=== PATIENT | male | born 1935 | race Caucasian/White ===

== ENCOUNTER 2018-02-04 19:05 | Emergency (ER) | payer OTHER ==
[2018-02-04 19:08] VITALS: TEMP 36.8; Ht 177.8 cm
[2018-02-04] MEDS ORDERED: WARF-285 PO ×2 (19:28)
[2018-02-04] MEDS ORDERED: TAMS0.4C38 PO (19:35)
[2018-02-04] MEDS ORDERED: LISI-725 PO (19:35)
[2018-02-04] MEDS ORDERED: VNTHFA/IN INH (19:35)
[2018-02-04] MEDS ORDERED: GLIM1TAB2 PO (19:35)
[2018-02-04] MEDS ORDERED: TORS20TA2 PO (19:35)
[2018-02-04] MEDS ORDERED: CLOP1TAB15 PO (19:35)
[2018-02-04] MEDS ORDERED: HYDR-5688 PO (19:35)
[2018-02-04] MEDS ORDERED: POTA1CAP53 PO (19:35)
[2018-02-04] MEDS ORDERED: ALLO100T PO (19:35)
[2018-02-04] MEDS ORDERED: ATOR-24 PO (19:35)
[2018-02-04] MEDS ORDERED: METO-478 PO (19:35)
[2018-02-04] MEDS ORDERED: FINA5TAB PO (19:36)
[2018-02-04 19:45] LABS: BASO % 0.3 %; BASO ABS # 0.02 K/uL (0-0.2); EOS % 1.9 %; EOS ABS # 0.14 K/uL (0-0.5); HEMATOCRIT 47.1 % (42-52); HEMOGLOBIN 15.8 g/dL (14.0-18.0); IG# 0.03 K/uL (0.00-0.02); LYMPH % 17.1 %; LYMPH ABS # 1.26 K/uL (1.2-3.4); MEAN CELL VOLUME 92.4 fL (80-100); MEAN CORPUSCULAR HGB CONC 33.5 g/dl (32-36); MEAN PLATELET VOLUME 10.4 fL (7.4-10.4); MONO % 12.1 %; MONO ABS # 0.89 K/uL (0.11-0.59); NEUT % 68.2 %; NEUT ABS # 5.04 K/uL (1.4-6.5); PLATELET COUNT 158 K/uL (130-400); RED CELL DISTRIBUTION WIDTH CV 14.7 % (11.5-14.5); WHITE BLOOD COUNT 7.38 K/uL (4.8-10.8)
[2018-02-04 19:55] LABS: INR 1.9 (0.9-1.1)
[2018-02-04 20:04] LABS: BLOOD UREA NITROGEN 36 mg/dl (7-18); CALCIUM 8.3 mg/dl (8.5-10.1); CARBON DIOXIDE 28 mmol/L (21-32); CREATININE 1.52 mg/dl (0.60-1.40); GLUCOSE 130 mg/dl (70-99); POTASSIUM 4.3 mmol/L (3.5-5.1); SODIUM 139 mmol/L (136-145)
[2018-02-04] MEDS ORDERED: CIPROFLOXACIN 500 MG TAB PO STA (20:28)
[2018-02-04 21:27] VITALS: BP 153/80; PULSE 71; O2SAT 94
--- NOTE | 2018-02-04 22:51 | EMERGENCY ROOM VISIT NOTE ---
History Report prepared by Pao: Ansley Jang Under the Supervision of: Dr. Vince Pierce D.O. First contact with patient: 19:10 Chief Complaint: CATHETER REPLACEMENT Stated Complaint: URINATING AROUND CATH TUBE History of Present Illness The patient is a 83 year old male who presents to the Emergency Room with complaints of a catheter problem beginning yesterday. He is accompanied by his who notes her had a catheter placed on Monday at [facility] as her had been having difficulty urinating. She notes they were told to follow up with urology and they would remove the catheter in a week however yesterday, his catheter clogged up and they replaced it. After the replacement, the patient could not urinate and describes his feeling as burning. His also states that today around 0600, her began bleeding and leaking from the tube which is why they came to the ED. Pt denies headache, change in vision , fevers, chest pain, shortness of breath, abdominal pain, nausea, vomiting, diarrhea, and melena. He is on Coumadin and Plavix. His last INR was last Monday and it was around 2.1. Source of History: patient, spouse/significant other () Onset: yesterday Position: other (catheter) Quality: burning Timing: other (after catheter replacement) Associated Symptoms: No headache, No chest pain, No SOB, No vomiting, No abdominal pain, No melena, No diarrhea Note: Negative change in vision Review of Systems See HPI for pertinent positives & negatives. A total of 10 systems reviewed and were otherwise negative. Past Medical & Surgical Medical Problems: (1) No significant past medical history Family History No pertinent family history Social History Marital Status: Housing Status: lives with significant other Occupation Status: retired Current/Historical Medications Scheduled Allopurinol (Zyloprim), 100 MG PO DAILY Atorvastatin (Lipitor), 40 MG PO QPM Clopidogrel (Plavix), 75 MG PO DAILY Finasteride (Proscar), 5 MG PO DAILY Glimepiride (Glimepiride), 1 TAB PO DAILY Lisinopril (Zestril), 20 MG PO DAILY Metoprolol Succinate (Toprol Xl), 25 MG PO QPM Potassium Chloride (Klor-Con Sprinkle), 10 MEQ PO BID Tamsulosin Hcl (Flomax), 0.4 MG PO BID Torsemide (Demadex), 20 MG PO DAILY Warfarin Sodium (Warfarin Sodium), 6 TAB PO 2XWK Warfarin Sodium (Warfarin Sodium), 3 TAB PO 5XWK Scheduled PRN Albuterol Hfa (Ventolin Hfa), 2-4 PUFFS INH Q6H PRN for SOB/Wheezing Hydrocodone/Acetaminophen 5MG/325MG ([place] 5MG/325MG), 1 TABLET PO UD PRN for Pain Allergies Coded Allergies: Aspirin (Verified Allergy, Unknown, HIVES, SOB, 02/04/18) Physical Exam Vital Signs Date Time Temp Pulse Resp B/P (MAP) Pulse Ox O2 Delivery O2 Flow Rate FiO2 02/04/18 21:27 71 20 153/80 94 Room Air 02/04/18 19:08 36.8 65 20 152/76 92 Room Air Physical Exam GENERAL: Sitting up in bed, disheveled, well appearing, no distress, non-toxic EYE EXAM: normal conjunctiva. PERRL and EOM's grossly intact. OROPHARYNX: no exudate, no erythema, lips, buccal mucosa, and tongue normal and mucous membranes are moist NECK: supple, no nuchal rigidity, no adenopathy, non-tender LUNGS: Clear to auscultation. Normal chest wall mechanics HEART: Systolic ejection murmur, S1 normal and S2 normal ABDOMEN: abdomen soft, non-tender, normo-active bowel sounds, no masses, no rebound or guarding. : Normal external circumcised genitalia. Valdez in placed which appears to be draining. SKIN: no rashes and no bruising UPPER EXTREMITIES: upper extremities are grossly normal. LOWER EXTREMITIES: No pitting edema. NEURO EXAM: Normal sensorium, cranial nerves II-XII grossly intact, normal speech, no gross weakness of arms, no gross weakness of legs. Bedside ultra sound shows distended bladder with Valdez in place Medical Decision & Procedures Laboratory Results 02/04/18 19:31 Red Blood Count 5.10, Mean Corpuscular Volume 92.4, Mean Corpuscular Hemoglobin 31.0, Mean Corpuscular Hemoglobin Concent 33.5, Mean Platelet Volume 10.4, Neutrophils (%) (Auto) 68.2, Lymphocytes (%) (Auto) 17.1, Monocytes (%) (Auto) 12.1, Eosinophils (%) (Auto) 1.9, Basophils (%) (Auto) 0.3, Neutrophils # (Auto ) 5.04, Lymphocytes # (Auto) 1.26, Monocytes # (Auto) 0.89, Eosinophils # (Auto ) 0.14, Basophils # (Auto) 0.02 02/04/18 19:31 Test 02/04/18 19:31 White Blood Count 7.38 K/uL (4.8-10.8) Red Blood Count 5.10 M/uL (4.7-6.1) Hemoglobin 15.8 g/dL (14.0-18.0) Hematocrit 47.1 % (42-52) Mean Corpuscular Volume 92.4 fL (80-100) Mean Corpuscular Hemoglobin 31.0 pg (25-34) Mean Corpuscular Hemoglobin Concent 33.5 g/dl (32-36) Platelet Count 158 K/uL (130-400) Mean Platelet Volume 10.4 fL (7.4-10.4) Neutrophils (%) (Auto) 68.2 % Lymphocytes (%) (Auto) 17.1 % Monocytes (%) (Auto) 12.1 % Eosinophils (%) (Auto) 1.9 % Basophils (%) (Auto) 0.3 % Neutrophils # (Auto) 5.04 K/uL (1.4-6.5) Lymphocytes # (Auto) 1.26 K/uL (1.2-3.4) Monocytes # (Auto) 0.89 K/uL (0.11-0.59) Eosinophils # (Auto) 0.14 K/uL (0-0.5) Basophils # (Auto) 0.02 K/uL (0-0.2) RDW Standard Deviation 50.0 fL (36.4-46.3) RDW Coefficient of Variation 14.7 % (11.5-14.5) Immature Granulocyte % (Auto) 0.4 % Immature Granulocyte # (Auto) 0.03 K/uL (0.00-0.02) Prothrombin Time 20.1 SECONDS (9.0-12.0) Prothromb Time International Ratio 1.9 (0.9-1.1) Anion Gap 6.0 mmol/L (3-11) Estimated GFR () 48.8 Estimated GFR (Non- 42.1 BUN/Creatinine Ratio 23.6 (10-20) Calcium Level 8.3 mg/dl (8.5-10.1) Laboratory results per my review. Medications Administered Medications (Trade) Dose Ordered Sig/Buck Route Start Time Stop Time Status Last Admin Dose Admin Ciprofloxacin (Cipro Tab) 500 mg NOW STAT PO 02/04/18 20:28 02/04/18 20:29 DC 02/04/18 21:27 500 MG ED Course ED COURSE: Vital signs were reviewed and showed normotensive The patients medical record was reviewed The above diagnostic studies were performed and reviewed. ED treatments and interventions as stated above. 1911: The patient was evaluated in room A10. A complete history and physical examination was performed. 1949: Repeat bladder scan shows bladder completely collapsed. Valdez in place. 2024: Upon reevaluation, the patient is feeling better. I discussed my findings with the patient and he understands and agrees with the treatment plan. Based on the patients age, coexisting illnesses, exam and lab findings the decision to treat as an outpatient was made. The patient remained stable while under my care. The patient appeared well at the time of discharge. Medical Decision Differential diagnoses includes but is not limited to gastritis, peptic ulcer disease, GERD, gallbladder disease, pancreatitis, small bowel obstruction, acute coronary syndrome, pericarditis, ischemic bowel, irritable bowel disease, irritable bowel syndrome, appendicitis, diverticulitis, malignancy, hernia, urinary tract infection, torsion, [/ectopic (if female)], perforation, trauma, infectious. Patient is an 83-year-old male with a past medical history of stage III kidney disease per family that presents the ER for urinary retention. He notes that he has having overflow around the catheter in his penis. He has no complaints at this time. CBC was unremarkable. BMP with a creatinine 1.5. I do believe that this likely consistent with his baseline as he has stage III disease per . INR was slightly low at 1.9. Family was updated. Bedside ultrasound confirmed Valdez in proper position urinary bladder was distended. We did flush the catheter and there is fair amount of clot that came out. The urine turned clear. Patient was given a one-time dose of Cipro secondary to flushing the catheter. Patient will follow up with his urologist tomorrow. Discussed with Pt concerning signs and symptoms to watch out for. Pt was instructed to follow up with their PCP and discussed with the patient their option to return to the ED at anytime for persistent or worsening symptoms. The appropriate anticipatory guidance and out-patient management, including indications for return to the emergency department, were explained at length to the patient and understood. Medication Reconcilliation Current Medication List: was personally reviewed by me Blood Pressure Screening Patient's blood pressure: Normal blood pressure Blood pressure disposition: Did not require urgent referral Impression Primary Impression: Urinary retention Scribe Attestation The scribe's documentation has been prepared under my direction and personally reviewed by me in its entirety. I confirm that the note above accurately reflects all work, treatment, procedures, and medical decision making performed by me. Departure Information Dispostion Home / Self-Care Referrals No Doctor, Assigned (PCP) Forms HOME CARE DOCUMENTATION FORM, IMPORTANT VISIT INFORMATION Patient Instructions [facility] Additional Instructions Please follow up with your primary care doctor with in the next 24 hours. Any worsening of your symptoms, please return to the ED immediately. This includes any fevers greater than 100.4, worsening pain, chest pain, shortness breath, persistent nausea, vomiting, unable to eat or drink, or any other concerning signs or symptoms from your standpoint. Please make sure that you follow-up with your urologist.
== END 2018-02-04 21:28 | disposition home or self-care (01) ==
LOC: C.EDB 19:09 → C.EDA 21:28
DX: R33.9 Retention of urine, unspecified (principal); R79.89 Other specified abnormal findings of blood chemistry; N18.3 Chronic kidney disease, stage 3 (moderate); Z98.890 Other specified postprocedural states; Z79.01 Long term (current) use of anticoagulants; Z79.899 Other long term (current) drug therapy; Z88.6 Allergy status to analgesic agent

== ENCOUNTER 2019-01-04 13:51 | Inpatient (IN) ==
[2019-01-04] MEDS ORDERED: ONDANSETRON INJ 2 MG/ML 2 ML VIAL IV PRN (17:50)
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
[2019-01-04] MEDS ORDERED: LIDOCAINE 5% 1 PATCH TD SCH (18:15)
[2019-01-04] MEDS: NSS + 20MEQ KCL 20 MEQ/1,000 ML BAG IV SCH (18:49)
[2019-01-04] MEDS ORDERED: PNEUMOCOCCAL ADMINISTRATION CHARGE ONE (19:00)
[2019-01-04] MEDS ORDERED: PNEUMOCOCCAL POLYSACCHARIDES 25 MCG/0.5 ML VIAL/SYR IM ONE (19:00)
[2019-01-04 19:58] LABS: Creatinine Clr Calc Pharmacy 78.6 ml/min; Est GFR (African American) 88.3; Est GFR (Non-African American) 76.2
[2019-01-04] MEDS ORDERED: CIPROFLOXACIN 500 MG TAB PO SCH (21:00)
[2019-01-04] MEDS: METOPROLOL SUCC 25MG EXT REL TAB PO SCH (21:06)
[2019-01-04] MEDS: ATORVASTATIN 40 MG TAB PO SCH (21:06)
[2019-01-04] MEDS: TAMSULOSIN HCL 0.4 MG CAP PO SCH (21:06)
[2019-01-04 21:42] LABS: Appearance Urine Clear (Clear); Bacteria Urine Automated Negative (Negative); Bilirubin Urine Negative (Negative); Blood Urine 3+ (Negative); Color Urine Yellow; Glucose Urine UA Negative (Negative); Ketones Urine Negative (Negative); Leukocyte Esterase Urine Trace (Negative); Nitrite Urine Negative (Negative); Protein Urine 1+ (Negative); RBC Urine Automated >30 /hpf (0-4); Specific Gravity Urine 1.019 (1.000-1.030); Urobilinogen Urine Negative (Negative)
[2019-01-05] MEDS ORDERED: CARBOHYDRATES FOR HYPOGLYCEMIA PO PRN (04:16)
[2019-01-05] MEDS ORDERED: GLUCOSE 40% GEL 15 GM TUBE PO PRN (04:16)
[2019-01-05] MEDS ORDERED: GLUCOSE 10 TABS/TUBE PO PRN (04:16)
[2019-01-05] MEDS ORDERED: DEXTROSE 50% 50 ML SYRINGE IV PRN (04:16)
[2019-01-05] MEDS ORDERED: GLUCAGON FOR INJ 1 MG VIAL SQ PRN (04:16)
[2019-01-05] MEDS ORDERED: Nursing to Pharmacy Communication ONE (04:47)
[2019-01-05 05:47] LABS: Basophils # (auto) 0.02 K/uL (0-0.2); Basophils % (auto) 0.3 %; Eosinophils % (auto) 1.4 %; Hematocrit (blood only) 42.2 % (42-52); Immature Granulocytes % (auto) 1.4 %; Lymphocytes # (auto) 0.81 K/uL (1.2-3.4); Lymphocytes % (auto) 11.1 %; Mean Corpuscular Hgb Conc 33.2 g/dL (32-36); Mean Corpuscular Volume 93.8 fL (80-100); Mean Platelet Volume 9.6 fL (7.4-10.4); Monocytes # (auto) 0.64 K/uL (0.11-0.59); Monocytes % (auto) 8.8 %; Neutrophils # (auto) 5.64 K/uL (1.4-6.5); Platelet Count 217 K/uL (130-400); RDW Coefficient of Variation 14.9 % (11.5-14.5); RDW Standard Deviation 50.2 fL (36.4-46.3); White Blood Count 7.31 K/uL (4.8-10.8)
[2019-01-05 06:13] LABS: INR 1.9 (0.9-1.1); Prothrombin Time 18.5 Seconds (9.0-12.0)
[2019-01-05 06:27] LABS: Albumin Level 2.3 gm/dl (3.4-5.0); BUN Creatinine Ratio 12.7 (10-20); Creatinine Clr Calc Pharmacy 88.1 ml/min; Est GFR (Non-African American) 81.9; Potassium 3.7 mmol/L (3.5-5.1)
[2019-01-05] MEDS: INSULIN ASPART 100 UNITS/ML 3 ML PEN SC SCH ×3 (06:28→18:07)
[2019-01-05 06:30] LABS: Albumin Globulin Ratio 0.7 (0.9-2); Bilirubin,Total 1.4 mg/dl (0.2-1); Globulin 3.2 gm/dl (2.5-4.0); Total Protein 5.5 gm/dl (6.4-8.2)
[2019-01-05] MEDS: NSS + 20MEQ KCL 20 MEQ/1,000 ML BAG IV SCH ×2 (07:27→20:06)
[2019-01-05] MEDS: ACETAMINOPHEN 325 MG TAB PO PRN ×3 (08:03→21:19)
[2019-01-05] MEDS: LISINOPRIL 20 MG TAB PO SCH (08:04)
[2019-01-05] MEDS: FINASTERIDE 5 MG TAB PO SCH (08:04)
[2019-01-05] MEDS: CLOPIDOGREL BISULFATE 75 MG TAB PO SCH (08:05)
[2019-01-05] MEDS: TORSEMIDE 10 MG TAB PO SCH (08:05)
[2019-01-05] MEDS: TAMSULOSIN HCL 0.4 MG CAP PO SCH ×2 (08:05→20:50)
--- NOTE | 2019-01-05 08:18 | XRay Report ---
KUB HISTORY: Ileus from outside hospital COMPARISON: Abdominal series outside hospital 01/04/2019. FINDINGS: Interval improvement in the distended gas-filled loops of large and small bowel. This favor s a resolving ileus. The cecum measures 12 cm in diameter, previously measuring 17 cm. No renal calc maty. No ureteral calculi. No pneumoperitoneum or pneumatosis. An aortobiiliac stent graft is noted. P rior cholecystectomy. The lung bases are clear. IMPRESSION: Interval improvement in the distended gas-filled loops of large and small bowel. This favors a resolv ing ileus. Electronically signed by: Lazarus Marshall M.D. 01/05/2019 8:17 AM
--- NOTE | 2019-01-05 08:21 | Gastrointestinal Consultation ---
Date of Consultation January 05, 2019 Assessment & Plan (1) Ileus: Certainly has physical exam findings as well as outside radiology's that suggest ileus, or concerning whether this represents a distal colonic obstruction and/or a Maxine's type syndrome. Certainly if his colon is distended as discussed on outside radiology records, a distention greater than 12 cm or greater than 6 days exhibits a very high rate of spontaneous perforation (in the setting of Maxine's). If this represents an ileus with both small and large bowel distention, then conservative management with NG tube rectal tube avoidance of narcotics correction of electrolytes and treatment of any metabolic issues would be in order. Will obtain abdominal x-ray and make further recommendations. In the interim -Please hold his Coumadin -Consider correcting his INR to 1.5 or less for potential intervention -Hold Plavix(given this morning) -Further recommendation once image review. History of Present Illness Attending Physician: Zoe Davis MD History of Present Illness I was asked to consult on Mr. Ortega this morning after and accepted transfer from the hospitalist service for GI care, without discussed with GI team, for ileus possible colonic pseudoobstruction. Approximately on December 27 Mr. Harry had a traumatic fall, presented to the ER [facility] with back pain and was found to have a compression fracture of his lumbar vertebrae. He was admitted to the hospital for pain control that was given in the way of IV morphine as well as fentanyl patch. He was transfe rred to a senior care and and patient complained about abdominal distention even prior to discharge. He was readmitted back to [facility] after a short stay at the senior care and had abdominal imaging to suggest an ileus, possible small as well as large bowel distention, but certainly cecal and ascending transverse distention. He was treated conservatively with enemas, as well as possibly some oral laxatives. This did not resolve therefore they transferred him for further opinion and care. He arrived last evening at our facility, he did have one reported bowel movement per is at bedside, 3 reported bowel movements per nursing staff, but still complains of mild abdominal distention without belly pain nausea and/or vomiting. He has been afebrile. He was supratherapeutic on his INR yesterday INR today is 1.9, he is on Plavix and received a dose this morning. No abdominal imaging is available from our facility for review. Is lying in bed somewhat comfortable, on oxygen, has memory issues so the majority of the history is obtained from his . He did pass gas per his last night and did have a bowel movement. Allergies Allergy/AdvReac Type Severity Reaction Status Date / Time aspirin Allergy Unknown HIVES, Verified 01/04/19 17:32 SOB, tongue swells, lips & hands swell Home Medications Home Medications Medication Instructions Recorded Confirmed Type ALBUTEROL HFA (VENTOLIN HFA) 2 puff INHALATION Q6H PRN #1 02/04/18 History inhaler ALLOPURINOL (ZYLOPRIM) 100 mg PO DAILY #0 tab 02/04/18 History ATORVASTATIN (LIPITOR) 40 mg PO QPM #0 tab 02/04/18 History Clopidogrel (Plavix) 75 mg PO DAILY #0 tab 02/04/18 History Finasteride (Proscar) 5 mg PO DAILY #0 tab 02/04/18 History GLIMEPIRIDE 1 tab PO DAILY 90 Days #90 tab 02/04/18 History Lisinopril (Zestril) 20 mg PO DAILY #0 tab 02/04/18 History METOPROLOL SUCCINATE (TOPROL XL) 25 mg PO QPM #30 tab 02/04/18 History Potassium Chloride (Klor-Con 10 meq PO BID #0 02/04/18 History Sprinkle) TAMSULOSIN HCL (FLOMAX) 0.4 mg PO BID #0 cap 02/04/18 History TORSEMIDE (DEMADEX) 20 mg PO DAILY #0 tab 02/04/18 History WARFARIN SODIUM 3 tab PO 5XWK 90 Days #0 tab 02/04/18 History WARFARIN SODIUM 6 tab PO 2XWK 90 Days #0 tab 02/04/18 History acetaminophen [Tylenol 8 Hour] 1,300 mg PO DAILY 01/04/19 01/04/19 History bisacodyl [Biscolax] 10 mg [place] PRN 01/04/19 History ciprofloxacin HCl [Cipro] 500 mg PO Q12H 01/04/19 01/04/19 History melatonin 3 mg PO HS PRN 01/04/19 01/04/19 History polyethylene glycol 3350 [Miralax] 8.5 g PO DAILY 01/04/19 01/04/19 History sodium phosphates [Fleet Enema] 1 [place] ONCE PRN 01/04/19 History Patient History Medical History Cholecystectomy planned Surgical History H/O carotid endarterectomy H/O endovascular stent graft for abdominal aortic aneurysm Family History Brother Cancer Social History Preferred Language: Mohawk Communication Ability: Effective 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: No Beliefs That Will Affect Care: None Current Living Situation: [facility] Other Information That Helps Us Care for You: No Feels Safe at Home: Yes Safety Concerns: Feels Safe At This Time Smoking Status: Former smoker Tobacco Type: cigarettes Cigarettes Per Day: 20- 30 Do You Dip or Chew Tobacco: No Smoking End Date: 2007 Second Hand Exposure: No Tobacco Cessation Education Requested by Patient: No Hx Alcohol Use: Yes Alcohol type: beer Hx Substance Use: No Review of Systems Review of Systems: Unobtainable due to mental health condition Physical Exam Physical Exam: Obese, lying in bed, nasal cannula on, no apparent distress Heart is irregular Lungs are coarse sounding the bases to diminished Abdomen has hypoactive but present bowel sounds soft, but distended, increased tympany throughout the abdomen 1+ peripheral edema Cranial nerves II through XII are intact Alert to himself not to time or place. Results & Data Vital Signs (Past 12 Hours) Vital Signs Temp Pulse Resp BP Pulse Ox 01/05/19 07:32 36.6 C 82 20 163/81 H 94 01/04/19 23:09 36.7 C 75 19 117/76 97 01/04/19 21:04 72 116/72
--- NOTE | 2019-01-05 09:09 | Family Medicine Progress Note ---
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 and risk of perforation Will likely decompress with NG and Rectal tube KUB ordered Does not appear to be fully obstructed as patient continues to pass gas and had bowel movement last night Will avoid opiates for pain management and use tylenol and lidocaine patch on fractured L3 NPO with IV fluid maintenance CHF No recent echo on file Will avoid overaggressive IV fluid due to patient's history of CHF Continuing home lisinopril Hold Torsemide while NPO and on IVF Atrial Fibrillation Anticoagulated on warfarin INR to 1.9 today will continue to hold warfarin in case of intervention per GI recommendations Recheck INR's daily Continue metoprolol succinate 25 mg qhs COPD Chronic Patient on 3 L currently Does not appear to be in acute exacerbation though slight wheeze heard PRN duonebs for any wheezing/SOB Patient has home oxygen but per does not use it at all DMII Patient on insulin sliding scale with no basal On oral medications at home which are being held Follow BSG BPH Valdez catheter in place currently. Finesteride and tamsulosin. Anticoagulation (For Afib and PVD) Holding clopidogrel for now due to possible surgical intervention Holding coumadin to get INR below 1.5 per GI recommendations F/E/N: NPO on Normal saline with 20 meq KCl at 80 ml/hour DVT PPx: Mechanical Dispo: Med Surg (2) Atrial fibrillation: (3) CHF (congestive heart failure): (4) H/O: CVA (cerebrovascular accident): (5) Iliac aneurysm: (6) COPD (chronic obstructive pulmonary disease): (7) Hypertension: (8) BPH (benign prostatic hyperplasia): (9) Diabetes mellitus: (10) Hyperlipidemia: Supervising Physician Co-Signing Physician Notes Resident Physician Supervision Note: I independently interviewed and examined the patient and verified the lopez history and physical, reviewed labs and image studies, discussed the case with the resident Dr. Mclean and agree with the findings and care plan. Subjective Aakash Ortega lying in bed this morning appearing more alert than yesterday. Still confused but more clear than yesterday. Tells me he has not been having abdominal pain, or back pain or any bowel motions. But his tells me he was complaining of back pain earlier and that he did in fact have a watery bowel motion last night and has been passing flatus all night. Review of Systems Review of Systems: All systems reviewed & are unremarkable except as noted in HPI & below Physical Exam Constitutional: + obese and cooperative; no acute distress Eyes: PERRL, conjunctivae normal, anicteric sclerae Respiratory: normal respiratory effort; no respiratory distress Auscultation: + rhonchi Good air entry globally, some rhoncorous breathing. Patient on nasal cannula at 3 L Cardiovascular: Rate/Rhythm: regular rate and regular rhythm Heart Sounds: normal S1 and normal S2; no click, no gallop, no murmur and no cardiac rub Gastrointestinal (Abdomen): Inspection/Auscultation: + abdomen distended and normal bowel sounds (tinkling bowel sounds); + abdomen abnormal to inspection Percussion/Palpation: + abdomen firm; abdomen nontender and no ascites Results & Data Vital Signs (Past 12 Hours) Vital Signs Temp Pulse Resp BP Pulse Ox 01/05/19 07:32 36.6 C 82 20 163/81 H 94 01/04/19 23:09 36.7 C 75 19 117/76 97 PG Care Time/CCT Total # of Minutes Spent Total Time Spent with Patient: Total time spent is greater than 50% in coordination of care (as documented) at patient's floor/unit and/or counseling patient: Resident Activity Tracking Resident Involvement: Resident Care Provided Care Provided: Adult Hospital Medicine
[2019-01-05] MEDS: METHYLNALTREXONE BROMIDE 12 MG/0.6 ML VIAL SQ SCH (11:57)
--- NOTE | 2019-01-05 15:20 | XRay Report ---
KUB HISTORY: Ileus COMPARISON: KUB 01/05/2019. FINDINGS: Multiple dilated gas-filled loops of large and small bowel are again noted. These have slig htly improved. The cecum is distended up to 10 cm, previously measuring 12 cm. An aortobiiliac stent graft is again noted. Prior cholecystectomy. No pneumoperitoneum or pneumatosis. IMPRESSION: Slight improvement in the suspected ileus as described above. Electronically signed by: Lazarus Marshall M.D. 01/05/2019 3:18 PM
[2019-01-05] MEDS: LIDOCAINE 5% 1 PATCH TD SCH (20:48)
[2019-01-05] MEDS: ATORVASTATIN 40 MG TAB PO SCH (20:49)
[2019-01-05] MEDS: METOPROLOL SUCC 25MG EXT REL TAB PO SCH (20:49)
[2019-01-06] MEDS: INSULIN ASPART 100 UNITS/ML 3 ML PEN SC SCH ×5 (00:21→20:35)
[2019-01-06] MEDS: ACETAMINOPHEN 325 MG TAB PO PRN ×4 (02:52→19:25)
--- NOTE | 2019-01-06 03:30 | Gastroenterology Progress Note ---
Date of Service January 06, 2019 Assessment & Plan (1) Ileus: Narcotic induced ileus of both the large and small bowel. On x-ray yesterday afternoon his cecum diameter was down to 10 cm, also showed small bowel dilation. That is not consistent with Maxine's which is an isolated colonic distention only. Given his improvement as well as presence of small bowel dilation, as well as family wishes, no role for endoscopy. He does have normal active sounds now which is a dramatic improvement. Will await x-ray for this morning, continue checking his electrolytes as well as magnesium that I have ordered today, goal would be a potassium of 4 and a magnesium of 2 If x-ray looks favorable and he continues to do well I would consider small liquid diet and 1 or 2 doses of MiraLAX today. He is due for Relistor again tomorrow pending his clinical course and if has presence of continued ileus. Overall dramatically improved. Subjective 1 large bowel movement yesterday that was unprovoked, and one with an enema. He did receive Relistor yesterday. He is without complaint this morning and resting peacefully. Physical Exam Physical Exam: Arousable Heart is regular Crackles in his bases Normal active bowel sounds today which is different than yesterday which time he had hypoactive to absent bowel sounds, much softer nondistended, 1+ edema Neurologically intact Results & Data Vital Signs (Past 12 Hours) Vital Signs Temp Pulse Resp BP Pulse Ox 01/06/19 00:53 36.5 C 92 H 20 165/96 H 96 01/05/19 20:46 91 H 161/93 H 2 L
[2019-01-06 05:54] LABS: Basophils # (auto) 0.03 K/uL (0-0.2); Basophils % (auto) 0.4 %; Eosinophils # (auto) 0.15 K/uL (0-0.5); Hematocrit (blood only) 42.5 % (42-52); Hemoglobin 14.1 g/dL (14.0-18.0); Immature Granulocytes # (auto) 0.07 K/uL (0.00-0.02); Lymphocytes # (auto) 0.91 K/uL (1.2-3.4); Lymphocytes % (auto) 12.4 %; Mean Corpuscular Hgb Conc 33.2 g/dL (32-36); Mean Corpuscular Volume 94.9 fL (80-100); Mean Platelet Volume 9.3 fL (7.4-10.4); Monocytes # (auto) 0.54 K/uL (0.11-0.59); Monocytes % (auto) 7.4 %; Neutrophils # (auto) 5.62 K/uL (1.4-6.5); Neutrophils % (auto) 76.8 %; Platelet Count 211 K/uL (130-400); RDW Coefficient of Variation 14.7 % (11.5-14.5); RDW Standard Deviation 50.9 fL (36.4-46.3); Red Blood Count 4.48 M/uL (4.7-6.1); White Blood Count 7.32 K/uL (4.8-10.8)
[2019-01-06 06:06] LABS: INR 1.7 (0.9-1.1); Prothrombin Time 16.7 Seconds (9.0-12.0)
[2019-01-06 06:12] LABS: Albumin Level 2.3 gm/dl (3.4-5.0); BUN Creatinine Ratio 17.8 (10-20); Creatinine Clr Calc Pharmacy 96.2 ml/min; Est GFR (African American) 98.5; Magnesium 1.8 mg/dl (1.8-2.4); Potassium 3.9 mmol/L (3.5-5.1)
[2019-01-06 06:15] LABS: Albumin Globulin Ratio 0.7 (0.9-2); Bilirubin,Total 1.4 mg/dl (0.2-1); Globulin 3.3 gm/dl (2.5-4.0); Total Protein 5.6 gm/dl (6.4-8.2)
--- NOTE | 2019-01-06 07:34 | XRay Report ---
KUB HISTORY: Acute left abdominal pain with ileus ileus COMPARISON: KUB 01/05/2019. FINDINGS: Decreased small and large bowel distention with large bowel now measuring up to 5.9 cm transversely, previously 10.4 cm. No pneumatosis or pneumoperitoneum. Aortobiiliac stent graft. Cholecystectomy. Ponce ggested left nephrolithiasis. Degenerative changes of the spine, pelvis and hips. Cardiomegaly with s ubsegmental left basilar opacities. IMPRESSION: Mildly decreased gaseous distention of the large and small bowel compatible with improving ileus. Electronically signed by: Fredi Hinkle M.D. 01/06/2019 7:33 AM
[2019-01-06] MEDS: NSS + 20MEQ KCL 20 MEQ/1,000 ML BAG IV SCH ×2 (08:21→20:37)
[2019-01-06] MEDS: LISINOPRIL 20 MG TAB PO SCH (08:32)
[2019-01-06] MEDS: FINASTERIDE 5 MG TAB PO SCH (08:32)
[2019-01-06] MEDS: TAMSULOSIN HCL 0.4 MG CAP PO SCH ×2 (08:33→20:36)
[2019-01-06] MEDS: CLOPIDOGREL BISULFATE 75 MG TAB PO SCH (08:33)
[2019-01-06] MEDS: POLYETHYLENE (MIRALAX) 17 GM PACK PO SCH (11:28)
--- NOTE | 2019-01-06 14:04 | Family Medicine Progress Note ---
Date of Service January 06, 2019 Assessment & Plan (1) Ileus: Aakash Ortega is an 83 year old man here for fecal impaction and colonic distension Ileus Appears to be improving markedly Abdominal XR showing 4 cm decrease in colon distension GI saw patient early this morning, recommend starting clear liquid diet and trying miralax Patient continuing to pass gas had multiple bowel motions yesterday Will avoid opiates for pain management and use tylenol and lidocaine patch on fractured L3 Chronic CHF No recent echo on file Will avoid overaggressive IV fluid due to patient's history of CHF Continuing home lisinopril Hold Torsemide while NPO and on IVF No symptoms of CHF exacerbation clinically Atrial Fibrillation Holding home warfarin INR to 1.6 today as patient begins to improve, resume coumadin - 1mg today and then 2mgs home dose from tomorrow. Recheck INR's daily Continue metoprolol succinate 25 mg qhs COPD Chronic Patient on 2 L currently Does not appear to be in acute exacerbation though slight wheeze heard PRN duonebs for any wheezing/SOB Patient has home oxygen but per does not use it at all DMII Patient on insulin sliding scale with no basal On oral medications at home which are being held Follow BSG BPH Valdez catheter in place currently. Finesteride and tamsulosin. Anticoagulation (For Afib and PVD) Holding clopidogrel - to resume in am - to be ordered. Resume coumadin since improved - ordered Dispo Extensive discussion with patient's - about joint terminal attack controller goals considering worsening quality of life. To consult palliative care in am for further discussion. F/E/N: Clear liquid. To d/c IVF in am. Continue Normal saline with 20 meq KCl at 80 ml/hour DVT PPx: Mechanical (2) Arthritis: (3) Atrial fibrillation: (4) Dementia: (5) Chronic constipation: (6) CHF (congestive heart failure): (7) H/O: CVA (cerebrovascular accident): (8) Iliac aneurysm: (9) COPD (chronic obstructive pulmonary disease): (10) Hypertension: (11) BPH (benign prostatic hyperplasia): Supervising Physician Co-Signing Physician Notes Resident Physician Supervision Note: I independently interviewed and examined the patient and verified the lopez history and physical, reviewed labs and image studies, discussed the case with the resident Dr. Mclean and agree with the findings and care plan. Subjective Patient is resting in bed more alert. Appears comfortable denies any pain at this time. Talked patient about starting diet today and he was in agreement. Patient reports that he did have bowel motions yesterday and passed gas continuously overnight. Had any nausea or vomiting and bowel motions were very liquid. Review of Systems Constitutional: no fever and no chills Respiratory: no cough and no dyspnea Cardiovascular: no chest pain and no dyspnea Gastrointestinal: + bloating and + diarrhea/loose stools; no abdominal pain Physical Exam Physical Exam: Constitutional: Patient appears well lying in bed no acute distress calm and cooperative : Respiratory patient breathing without any difficulty no accessory muscle use lung sounds vesicular bilaterally Cardiovascular: Heart sounds dual regular rate irregular rhythm consistent with his known atrial fibrillation no murmurs rubs heaves or gallops GI: Abdomen greatly distended though possibly slightly less than yesterday abdomen is soft and nontender normal bowel sounds are present : Valdez catheter in place draining yellow clear urine Results & Data Vital Signs (Past 12 Hours) Vital Signs Temp Pulse Resp BP Pulse Ox 01/06/19 07:47 36.5 C 94 H 18 161/84 H 90 PG Care Time/CCT Total # of Minutes Spent Total Time Spent with Patient: Total time spent is greater than 50% in coordination of care (as documented) at patient's floor/unit and/or counseling patient: Resident Activity Tracking Resident Involvement: Resident Care Provided Care Provided: Adult Hospital Medicine
[2019-01-06] MEDS ORDERED: Nursing to Pharmacy Communication ONE (15:55)
[2019-01-06] MEDS: LIDOCAINE 5% 1 PATCH TD SCH (20:37)
[2019-01-06] MEDS: ATORVASTATIN 40 MG TAB PO SCH (20:38)
[2019-01-06] MEDS: METOPROLOL SUCC 25MG EXT REL TAB PO SCH (20:39)
[2019-01-06] MEDS ORDERED: WARFARIN SOD 1 MG TAB PO STA (21:59)
[2019-01-07] MEDS: ACETAMINOPHEN 325 MG TAB PO PRN ×5 (01:01→23:20)
[2019-01-07 05:57] LABS: Basophils # (auto) 0.03 K/uL (0-0.2); Basophils % (auto) 0.4 %; Eosinophils % (auto) 1.4 %; Hematocrit (blood only) 40.7 % (42-52); Hemoglobin 13.7 g/dL (14.0-18.0); Immature Granulocytes # (auto) 0.08 K/uL (0.00-0.02); Immature Granulocytes % (auto) 1.1 %; Lymphocytes # (auto) 0.95 K/uL (1.2-3.4); Mean Corpuscular Hgb Conc 33.7 g/dL (32-36); Mean Corpuscular Volume 93.6 fL (80-100); Mean Platelet Volume 9.3 fL (7.4-10.4); Monocytes # (auto) 0.44 K/uL (0.11-0.59); Neutrophils # (auto) 5.73 K/uL (1.4-6.5); Neutrophils % (auto) 78.1 %; Platelet Count 224 K/uL (130-400); RDW Coefficient of Variation 14.8 % (11.5-14.5); RDW Standard Deviation 50.9 fL (36.4-46.3); Red Blood Count 4.35 M/uL (4.7-6.1); White Blood Count 7.33 K/uL (4.8-10.8)
[2019-01-07 06:06] LABS: Prothrombin Time 19.5 Seconds (9.0-12.0)
[2019-01-07 06:25] LABS: Albumin Level 2.4 gm/dl (3.4-5.0); BUN Creatinine Ratio 12.1 (10-20); Creatinine Clr Calc Pharmacy 84.1 ml/min; Est GFR (African American) 93.2; Est GFR (Non-African American) 80.4
[2019-01-07 06:28] LABS: Albumin Globulin Ratio 0.8 (0.9-2); Bilirubin,Total 1.2 mg/dl (0.2-1); Globulin 3.2 gm/dl (2.5-4.0); Total Protein 5.6 gm/dl (6.4-8.2)
[2019-01-07] MEDS: NSS + 20MEQ KCL 20 MEQ/1,000 ML BAG IV SCH (08:04)
[2019-01-07] MEDS: FINASTERIDE 5 MG TAB PO SCH (08:05)
[2019-01-07] MEDS: LISINOPRIL 20 MG TAB PO SCH (08:05)
[2019-01-07] MEDS: POLYETHYLENE (MIRALAX) 17 GM PACK PO SCH ×2 (08:05→11:27)
[2019-01-07] MEDS: TAMSULOSIN HCL 0.4 MG CAP PO SCH ×2 (08:05→19:42)
[2019-01-07] MEDS: INSULIN ASPART 100 UNITS/ML 3 ML PEN SC SCH ×4 (08:47→20:16)
--- NOTE | 2019-01-07 10:29 | XRay Report ---
KUB CLINICAL HISTORY: Ileus. FINDINGS: 4 AP, portable, supine abdominal radiographs are compared to study dated 01/06/2019 and corre lated with abdominal CT dated 12/31/2018. An aortobiiliac stent graft is again noted. There is persist ent mild gaseous distention of the colon, similar to previous. There is no evidence of high-grade bow el obstruction. No abnormal abdominal calcifications are identified. Phleboliths are observed in the pelvis. The skeletal structures are osteopenic. Degenerative change is seen in the spine. IMPRESSION: 1. There is no radiographic evidence of high-grade bowel obstruction and there has been no significan t change from yesterday. 2. Mild gaseous distention of the colon is again noted. Electronically signed by: Peter Grimaldo M.D. 01/07/2019 10:28 AM
[2019-01-07] MEDS ORDERED: SOD PHOSPHATE/SOD BIPHOSPHATE ENEMA 132 ML BTL PR STA (11:12)
[2019-01-07] MEDS: METHYLNALTREXONE BROMIDE 12 MG/0.6 ML VIAL SQ SCH (11:27)
--- NOTE | 2019-01-07 11:34 | Family Medicine Progress Note ---
Date of Service January 07, 2019 Assessment & Plan (1) Ileus: Mr. Ortega is an 83 yo M PMH CVA, AAA, aneurysm s/p stent placement (on plavix), afib (on coumadin), T2DM, BPH, CHF, admitted for fecal impaction and colonic distension 2/2 opiate use after mechanical fall. Ileus 2/2 Opiate use -GI on board, appreciate recs. Will continue clear liquids and plan to advance to full liquids 01/08/19 -Miralax 34 daily. Has had copious stool. -XR stable, will monitor daily per GI -Relistor per GI mgmt. -Cont to avoid opiates for pain, see plan for L3 fracture below Fractured L3 -Avoid opiates due to ileus and constipation -Tylenol and lidoderm patch to area -Consider voltaren gel in addition. -Expect pain/discomfort up to 3-4 weeks. CHF, unknown type -No recent echo on file -IVF DCd on 01/07/19 with PO intake -Continue home lisinopril and torsemide -Clinically euvolemic. No s/s of exacerbation. Atrial Fibrillation -Continue warfarin -Daily INR -Metoprolol succinate 25 mg qhs COPD -Stable, on 2L -PRN duonebs for wheezing/SOB -Patient has home oxygen but per does not use it at all. Education provided. T2DM -ISS, no basal -Cont oral meds from home on DC -Monitor BPH -Valdez catheter in place currently. C/W Finesteride and tamsulosin. PVD -Resumed plavix and coumadin F/E/N: Clear liquid diet, DCd IVF DVT PPx: Coumadin Dispo: Med Surg CODE: DNR/DNI (2) Arthritis: (3) Atrial fibrillation: (4) Dementia: (5) Chronic constipation: (6) CHF (congestive heart failure): (7) H/O: CVA (cerebrovascular accident): (8) Iliac aneurysm: (9) COPD (chronic obstructive pulmonary disease): (10) Hypertension: (11) BPH (benign prostatic hyperplasia): Supervising Physician Co-Signing Physician Notes I personally examined the patient and verified all lopez points of history and exam, discussed case, and agree with decision making with Dr Flores. feeling better after BM. stomach less pressure and less distended vitals noted nad breathing unlabored no accessory muscles. abd soft mild distention nontender ileus/narcotics induced - improving back pain - was the cause for needing pain control to begin with - seems tolerable with current regimen DVT proph - anticoagulation Subjective Patient reports he is in moderate discomfort this morning, 7/10 pain. He continues to pass flatus but no BM to date. Overall he states he feels about the same as he did yesterday. Review of Systems Review of Systems: All systems reviewed & are unremarkable except as noted in HPI & below Constitutional: + malaise Gastrointestinal: + abdominal pain, + bloating and + constipation; no early satiety, no nausea and no vomiting Musculoskeletal: + back pain and + joint pain Physical Exam Constitutional: WD/WN, vitals as above + obese, + physical limitations, + frail appearing, + disheveled, cooperative and comfortable Eyes: PERRL, conjunctivae normal, anicteric sclerae ENMT: external ear and nose normal, oropharynx normal Neck: normal visual inspection Respiratory: normal respiratory effort, lungs clear to auscultation Cardiovascular: RRR, no murmur, no edema Gastrointestinal (Abdomen): normal bowel sounds, soft, nontender, no hepatosplenomegaly Inspection/Auscultation: + abdomen distended Percussion/Palpation: abdomen nontender, no guarding and abdomen not rigid Skin: no rashes, warm and dry Neurologic: PERRL, EOMI, accommodation nl, no face palsy, no dysarthria Psychiatric: A+Ox3, euthymic affect Results & Data Vital Signs (Past 12 Hours) Vital Signs Temp Pulse Resp BP Pulse Ox 01/07/19 07:41 36.7 C 64 16 177/70 H 96 01/07/19 00:00 36.7 C 76 20 115/67 97 Laboratory Results 01/07/19 01/07/19 01/07/19 Range/Units 11:47 07:51 05:46 WBC (4.8-10.8) K/uL RBC (4.7-6.1) M/uL Hgb (14.0-18.0) g/dL Hct (42-52) % MCV (80-100) fL MCH (25-34) pg MCHC (32-36) g/dL RDW Std Deviation (36.4-46.3) fL RDW Coeff of Roman (11.5-14.5) % Plt Count (130-400) K/uL MPV (7.4-10.4) fL Immature Gran % (Auto) % Neut % (Auto) % Lymph % (Auto) % [place] % (Auto) % Eos % (Auto) % Baso % (Auto) % Immature Gran # (Auto) (0.00-0.02) K/uL Neut # (Auto) (1.4-6.5) K/uL Lymph # (Auto) (1.2-3.4) K/uL [place] # (Auto) (0.11-0.59) K/uL Eos # (Auto) (0-0.5) K/uL Baso # (Auto) (0-0.2) K/uL PT (9.0-12.0) Seconds INR (0.9-1.1) Sodium 140 (136-145) mmol/L Potassium 4.0 (3.5-5.1) mmol/L Chloride 107 (98-107) mmol/L Carbon Dioxide 29 (21-32) mmol/L Anion Gap 4.0 (3-11) BUN 10 (7-18) mg/dl Creatinine 0.87 (0.6-1.4) mg/dl Est Cr Clr Drug Dosing 84.1 ml/min Est GFR ( Amer) 93.2 Est GFR (Non-Af Amer) 80.4 BUN/Creatinine Ratio 12.1 (10-20) Glucose 107 H (70-99) mg/dl POC Glucose 160 H 111 H (70-99) Calcium 8.0 L (8.5-10.1) mg/dl Total Bilirubin 1.2 H (0.2-1) mg/dl AST 25 (15-37) U/L ALT 31 (12-78) U/L Alkaline Phosphatase 102 (45-117) U/L Total Protein 5.6 L (6.4-8.2) gm/dl Albumin 2.4 L (3.4-5.0) gm/dl Globulin 3.2 (2.5-4.0) gm/dl Albumin/Globulin Ratio 0.8 L (0.9-2) 01/07/19 01/07/19 01/06/19 Range/Units 05:46 05:46 20:14 WBC 7.33 (4.8-10.8) K/uL RBC 4.35 L (4.7-6.1) M/uL Hgb 13.7 L (14.0-18.0) g/dL Hct 40.7 L (42-52) % MCV 93.6 (80-100) fL MCH 31.5 (25-34) pg MCHC 33.7 (32-36) g/dL RDW Std Deviation 50.9 H (36.4-46.3) fL RDW Coeff of Roman 14.8 H (11.5-14.5) % Plt Count 224 (130-400) K/uL MPV 9.3 (7.4-10.4) fL Immature Gran % (Auto) 1.1 % Neut % (Auto) 78.1 % Lymph % (Auto) 13.0 % [place] % (Auto) 6.0 % Eos % (Auto) 1.4 % Baso % (Auto) 0.4 % Immature Gran # (Auto) 0.08 H (0.00-0.02) K/uL Neut # (Auto) 5.73 (1.4-6.5) K/uL Lymph # (Auto) 0.95 L (1.2-3.4) K/uL [place] # (Auto) 0.44 (0.11-0.59) K/uL Eos # (Auto) 0.10 (0-0.5) K/uL Baso # (Auto) 0.03 (0-0.2) K/uL PT 19.5 H (9.0-12.0) Seconds INR 2.0 H (0.9-1.1) Sodium (136-145) mmol/L Potassium (3.5-5.1) mmol/L Chloride (98-107) mmol/L Carbon Dioxide (21-32) mmol/L Anion Gap (3-11) BUN (7-18) mg/dl Creatinine (0.6-1.4) mg/dl Est Cr Clr Drug Dosing ml/min Est GFR ( Amer) Est GFR (Non-Af Amer) BUN/Creatinine Ratio (10-20) Glucose (70-99) mg/dl POC Glucose 175 H (70-99) Calcium (8.5-10.1) mg/dl Total Bilirubin (0.2-1) mg/dl AST (15-37) U/L ALT (12-78) U/L Alkaline Phosphatase (45-117) U/L Total Protein (6.4-8.2) gm/dl Albumin (3.4-5.0) gm/dl Globulin (2.5-4.0) gm/dl Albumin/Globulin Ratio (0.9-2) 01/06/19 Range/Units 16:56 WBC (4.8-10.8) K/uL RBC (4.7-6.1) M/uL Hgb (14.0-18.0) g/dL Hct (42-52) % MCV (80-100) fL MCH (25-34) pg MCHC (32-36) g/dL RDW Std Deviation (36.4-46.3) fL RDW Coeff of Roman (11.5-14.5) % Plt Count (130-400) K/uL MPV (7.4-10.4) fL Immature Gran % (Auto) % Neut % (Auto) % Lymph % (Auto) % [place] % (Auto) % Eos % (Auto) % Baso % (Auto) % Immature Gran # (Auto) (0.00-0.02) K/uL Neut # (Auto) (1.4-6.5) K/uL Lymph # (Auto) (1.2-3.4) K/uL [place] # (Auto) (0.11-0.59) K/uL Eos # (Auto) (0-0.5) K/uL Baso # (Auto) (0-0.2) K/uL PT (9.0-12.0) Seconds INR (0.9-1.1) Sodium (136-145) mmol/L Potassium (3.5-5.1) mmol/L Chloride (98-107) mmol/L Carbon Dioxide (21-32) mmol/L Anion Gap (3-11) BUN (7-18) mg/dl Creatinine (0.6-1.4) mg/dl Est Cr Clr Drug Dosing ml/min Est GFR ( Amer) Est GFR (Non-Af Amer) BUN/Creatinine Ratio (10-20) Glucose (70-99) mg/dl POC Glucose 133 H (70-99) Calcium (8.5-10.1) mg/dl Total Bilirubin (0.2-1) mg/dl AST (15-37) U/L ALT (12-78) U/L Alkaline Phosphatase (45-117) U/L Total Protein (6.4-8.2) gm/dl Albumin (3.4-5.0) gm/dl Globulin (2.5-4.0) gm/dl Albumin/Globulin Ratio (0.9-2) Diagnostic Findings KUB CLINICAL HISTORY: Ileus. FINDINGS: 4 AP, portable, supine abdominal radiographs are compared to study dated 01/06/2019 and correlated with abdominal CT dated 12/31/2018. An aortobiiliac stent graft is again noted. There is persistent mild gaseous distention of the colon, similar to previous. There is no evidence of high-grade bowel obstruction. No abnormal abdominal calcifications are identified. Phleboliths are observed in the pelvis. The skeletal structures are osteopenic. Degenerative change is seen in the spine. IMPRESSION: 1. There is no radiographic evidence of high-grade bowel obstruction and there has been no significant change from yesterday. 2. Mild gaseous distention of the colon is again noted. Electronically signed by: Peter Grimaldo M.D. 01/07/2019 10:28 AM Medications Administered Current Inpatient Medications Acetaminophen (Tylenol) 650 mg PO Q4H PRN PRN Reason: pain/fever Stop: 02/03/19 17:49 Last Admin: 01/07/19 08:44 Dose: 650 mg Documented by: Atorvastatin Calcium (Lipitor) 40 mg PO QPM DYLON Stop: 02/03/19 20:59 Last Admin: 01/06/19 20:38 Dose: 40 mg Documented by: Clopidogrel Bisulfate (Plavix) 75 mg PO DAILY DYLON Stop: 02/04/19 08:59 Last Admin: 01/06/19 08:33 Dose: 75 mg Documented by: Dextrose (Dextrose 50%) 25 - 50 ml IV UD PRN; Protocol PRN Reason: Hypoglycemia Protocol Stop: 02/04/19 04:15 Finasteride (Proscar) 5 mg PO DAILY DYLON Stop: 02/04/19 08:59 Last Admin: 01/07/19 08:05 Dose: 5 mg Documented by: Glucagon (Glucagen) 1 mg SQ UD PRN; Protocol PRN Reason: Hypoglycemia Protocol Stop: 02/04/19 04:15 Glucose (Glucose 40%) 15 - 30 gm PO UD PRN; Protocol PRN Reason: Hypoglycemia Protocol Stop: 02/04/19 04:15 Glucose (Dex4 Glucose) 4 - 8 tabs PO UD PRN; Protocol PRN Reason: Hypoglycemia Protocol Stop: 02/04/19 04:15 Potassium Chloride/Sodium Chloride (Normal Saline W/20 Meq Kcl) 20 meq in 1,000 mls @ 80 mls/hr IV .[id number] DYLON Stop: 02/03/19 18:14 Last Infusion: 01/07/19 09:25 Dose: Infused Documented by: Insulin Aspart (Novolog Flexpen) 0 units SC ACHS DYLON Stop: 02/05/19 16:29 Last Admin: 01/07/19 12:29 Dose: 5 units Documented by: Lidocaine (Lidoderm 5%) 1 patch TD DAILY@2000 [facility] Stop: 02/04/19 19:59 Last Admin: 01/06/19 20:37 Dose: 1 patch Documented by: Lisinopril (Zestril) 20 mg PO DAILY DYLON Stop: 02/04/19 08:59 Last Admin: 01/07/19 08:05 Dose: 20 mg Documented by: Methylnaltrexone [place] (Relistor) 12 mg SQ Q2D@1130 [facility] Stop: 02/04/19 11:29 Last Admin: 01/07/19 11:27 Dose: 12 mg Documented by: Metoprolol Succinate (Toprol Xl) 25 mg PO QPM DYLON Stop: 02/03/19 20:59 Last Admin: 01/06/19 20:39 Dose: 25 mg Documented by: Miscellaneous (Carbohydrates For Hypoglycemia) 15 - 30 gm PO UD PRN PRN Reason: Hypoglycemia Treatment Stop: 02/04/19 04:15 Miscellaneous (Remove Lidoderm Patch) 1 ea N/A DAILY@0800 [facility] Stop: 02/05/19 07:59 Last Admin: 01/07/19 08:06 Dose: 1 ea Documented by: Ondansetron HCl (Zofran) 4 mg IV Q6H PRN PRN Reason: Nausea Stop: 02/03/19 17:49 Polyethylene Glycol (Miralax Powder Packet) 34 gm PO DAILY [facility] Stop: 02/06/19 11:29 Last Admin: 01/07/19 11:27 Dose: 34 gm Documented by: Tamsulosin HCl (Flomax) 0.4 mg PO BID DYLON Stop: 02/03/19 20:59 Last Admin: 01/07/19 08:05 Dose: 0.4 mg Documented by: Torsemide (Demadex) 20 mg PO DAILY DYLON Stop: 02/04/19 08:59 Last Admin: 01/05/19 08:05 Dose: 20 mg Documented by: Warfarin Sodium (Coumadin) 2 mg PO HS DYLON Stop: 02/06/19 20:59 PG Care Time/CCT Total # of Minutes Spent Total Time Spent with Patient: Total time spent is greater than 50% in coordination of care (as documented) at patient's floor/unit and/or counseling patient: Resident Activity Tracking Resident Involvement: Resident Care Provided Care Provided: Adult Hospital Medicine
--- NOTE | 2019-01-07 12:51 | Gastroenterology Progress Note ---
Date of Service January 07, 2019 Assessment & Plan (1) Ileus: Pt is a 83 y/o male seen for narcootic induced ileus. Currently having less colonic distension w/o signs of obstruction on AM KUB. Abd exam benign - Relistor given today - Keep K 4 and above, Mg 2 and above - Continue Miralax 34g daily - Continue CL diet, possible advancing to [place] tomorrow. Supervising Physician Co-Signing Physician Notes Attending attestation I have seen, examined this patient, and agree with the findings and above by our mid-level provider Ms.Leonie Lopez, with the following additions X-rays stable today, patient feels well without complaints. Relistor was given today, Follow x-ray daily Bowel regimen Recall GI if necessary Subjective Pt didn't have BM yesterday, received another dose of Relistor and Miralax today. Denies abd pain, n/v. KUB this AM: 1. There is no radiographic evidence of high-grade bowel obstruction and there has been no significant change from yesterday. 2. Mild gaseous distention of the colon is again noted. Review of Systems Review of Systems: All systems reviewed & are unremarkable except as noted in HPI & below Physical Exam Constitutional: WD/WN, vitals as above well groomed, cooperative and comfortable Eyes: PERRL, conjunctivae normal, anicteric sclerae ENMT: external ear and nose normal, oropharynx normal Respiratory: normal respiratory effort, lungs clear to auscultation Cardiovascular: RRR, no murmur, no edema Gastrointestinal (Abdomen): normal bowel sounds, soft, nontender, no hepatosplenomegaly Skin: no rashes, warm and dry no jaundice Psychiatric: A+Ox3, euthymic affect Lymphatic: no lymphedema Results & Data Vital Signs (Past 12 Hours) Vital Signs Temp Pulse Resp BP Pulse Ox 01/07/19 07:41 36.7 C 64 16 177/70 H 96 Laboratory Results Laboratory Results - last 72 hr 01/04/19 01/04/19 01/04/19 16:46 19:25 21:30 WBC RBC Hgb Hct MCV MCH MCHC RDW Std Deviation RDW Coeff of Roman Plt Count MPV Immature Gran % (Auto) Neut % (Auto) Lymph % (Auto) [place] % (Auto) Eos % (Auto) Baso % (Auto) Immature Gran # (Auto) Neut # (Auto) Lymph # (Auto) [place] # (Auto) Eos # (Auto) Baso # (Auto) PT INR Sodium Potassium Chloride Carbon Dioxide Anion Gap BUN Creatinine 0.93 Est Cr Clr Drug Dosing 78.6 Est GFR ( Amer) 88.3 Est GFR (Non-Af Amer) 76.2 BUN/Creatinine Ratio Glucose POC Glucose 109 H Lactate Calcium Magnesium Total Bilirubin AST ALT Alkaline Phosphatase Total Protein Albumin Globulin Albumin/Globulin Ratio Urine Color Yellow Urine Appearance Clear Urine pH 5.0 Ur Specific [place] 1.019 Urine Protein 1+ H Urine Glucose (UA) Negative Urine Ketones Negative Urine Blood 3+ H Urine Nitrite Negative Urine Bilirubin Negative Urine Urobilinogen Negative Ur Leukocyte Esterase Trace H Urine WBC (Auto) 1-5 Urine RBC (Auto) >30 H U Hyaline Cast (Auto) 10-30 H U Epithel Cells (Auto) 10-20 H Urine Bacteria (Auto) Negative 01/05/19 01/05/19 01/05/19 04:15 05:03 05:03 WBC 7.31 RBC 4.50 L Hgb 14.0 Hct 42.2 MCV 93.8 MCH 31.1 MCHC 33.2 RDW Std Deviation 50.2 H RDW Coeff of Roman 14.9 H Plt Count 217 MPV 9.6 Immature Gran % (Auto) 1.4 Neut % (Auto) 77.0 Lymph % (Auto) 11.1 [place] % (Auto) 8.8 Eos % (Auto) 1.4 Baso % (Auto) 0.3 Immature Gran # (Auto) 0.10 H Neut # (Auto) 5.64 Lymph # (Auto) 0.81 L [place] # (Auto) 0.64 H Eos # (Auto) 0.10 Baso # (Auto) 0.02 PT 18.5 H INR 1.9 H Sodium Potassium Chloride Carbon Dioxide Anion Gap BUN Creatinine Est Cr Clr Drug Dosing Est GFR ( Amer) Est GFR (Non-Af Amer) BUN/Creatinine Ratio Glucose POC Glucose 98 Lactate Calcium Magnesium Total Bilirubin AST ALT Alkaline Phosphatase Total Protein Albumin Globulin Albumin/Globulin Ratio Urine Color Urine Appearance Urine pH Ur Specific [place] Urine Protein Urine Glucose (UA) Urine Ketones Urine Blood Urine Nitrite Urine Bilirubin Urine Urobilinogen Ur Leukocyte Esterase Urine WBC (Auto) Urine RBC (Auto) U Hyaline Cast (Auto) U Epithel Cells (Auto) Urine Bacteria (Auto) 01/05/19 01/05/19 01/05/19 05:03 09:30 12:20 WBC RBC Hgb Hct MCV MCH MCHC RDW Std Deviation RDW Coeff of Roman Plt Count MPV Immature Gran % (Auto) Neut % (Auto) Lymph % (Auto) [place] % (Auto) Eos % (Auto) Baso % (Auto) Immature Gran # (Auto) Neut # (Auto) Lymph # (Auto) [place] # (Auto) Eos # (Auto) Baso # (Auto) PT INR Sodium 139 Potassium 3.7 Chloride 109 H Carbon Dioxide 23 Anion Gap 7.0 BUN 11 Creatinine 0.83 Est Cr Clr Drug Dosing 88.1 Est GFR ( Amer) 95.0 Est GFR (Non-Af Amer) 81.9 BUN/Creatinine Ratio 12.7 Glucose 107 H POC Glucose 108 H Lactate 0.8 Calcium 8.0 L Magnesium Total Bilirubin 1.4 H AST 25 ALT 33 Alkaline Phosphatase 91 Total Protein 5.5 L Albumin 2.3 L Globulin 3.2 Albumin/Globulin Ratio 0.7 L Urine Color Urine Appearance Urine pH Ur Specific [place] Urine Protein Urine Glucose (UA) Urine Ketones Urine Blood Urine Nitrite Urine Bilirubin Urine Urobilinogen Ur Leukocyte Esterase Urine WBC (Auto) Urine RBC (Auto) U Hyaline Cast (Auto) U Epithel Cells (Auto) Urine Bacteria (Auto) 01/05/19 01/05/19 01/06/19 18:05 23:58 05:12 WBC 7.32 RBC 4.48 L Hgb 14.1 Hct 42.5 MCV 94.9 MCH 31.5 MCHC 33.2 RDW Std Deviation 50.9 H RDW Coeff of Roman 14.7 H Plt Count 211 MPV 9.3 Immature Gran % (Auto) 1.0 Neut % (Auto) 76.8 Lymph % (Auto) 12.4 [place] % (Auto) 7.4 Eos % (Auto) 2.0 Baso % (Auto) 0.4 Immature Gran # (Auto) 0.07 H Neut # (Auto) 5.62 Lymph # (Auto) 0.91 L [place] # (Auto) 0.54 Eos # (Auto) 0.15 Baso # (Auto) 0.03 PT INR Sodium Potassium Chloride Carbon Dioxide Anion Gap BUN Creatinine Est Cr Clr Drug Dosing Est GFR ( Amer) Est GFR (Non-Af Amer) BUN/Creatinine Ratio Glucose POC Glucose 92 90 Lactate Calcium Magnesium Total Bilirubin AST ALT Alkaline Phosphatase Total Protein Albumin Globulin Albumin/Globulin Ratio Urine Color Urine Appearance Urine pH Ur Specific [place] Urine Protein Urine Glucose (UA) Urine Ketones Urine Blood Urine Nitrite Urine Bilirubin Urine Urobilinogen Ur Leukocyte Esterase Urine WBC (Auto) Urine RBC (Auto) U Hyaline Cast (Auto) U Epithel Cells (Auto) Urine Bacteria (Auto) 01/06/19 01/06/19 01/06/19 05:12 05:12 05:49 WBC RBC Hgb Hct MCV MCH MCHC RDW Std Deviation RDW Coeff of Roman Plt Count MPV Immature Gran % (Auto) Neut % (Auto) Lymph % (Auto) [place] % (Auto) Eos % (Auto) Baso % (Auto) Immature Gran # (Auto) Neut # (Auto) Lymph # (Auto) [place] # (Auto) Eos # (Auto) Baso # (Auto) PT 16.7 H INR 1.7 H Sodium 140 Potassium 3.9 Chloride 108 H Carbon Dioxide 25 Anion Gap 7.0 BUN 13 Creatinine 0.76 Est Cr Clr Drug Dosing 96.2 Est GFR ( Amer) 98.5 Est GFR (Non-Af Amer) 85.0 BUN/Creatinine Ratio 17.8 Glucose 92 POC Glucose 92 Lactate Calcium 8.0 L Magnesium 1.8 Total Bilirubin 1.4 H AST 25 ALT 32 Alkaline Phosphatase 99 Total Protein 5.6 L Albumin 2.3 L Globulin 3.3 Albumin/Globulin Ratio 0.7 L Urine Color Urine Appearance Urine pH Ur Specific [place] Urine Protein Urine Glucose (UA) Urine Ketones Urine Blood Urine Nitrite Urine Bilirubin Urine Urobilinogen Ur Leukocyte Esterase Urine WBC (Auto) Urine RBC (Auto) U Hyaline Cast (Auto) U Epithel Cells (Auto) Urine Bacteria (Auto) 01/06/19 01/06/19 01/06/19 12:09 16:56 20:14 WBC RBC Hgb Hct MCV MCH MCHC RDW Std Deviation RDW Coeff of Roman Plt Count MPV Immature Gran % (Auto) Neut % (Auto) Lymph % (Auto) [place] % (Auto) Eos % (Auto) Baso % (Auto) Immature Gran # (Auto) Neut # (Auto) Lymph # (Auto) [place] # (Auto) Eos # (Auto) Baso # (Auto) PT INR Sodium Potassium Chloride Carbon Dioxide Anion Gap BUN Creatinine Est Cr Clr Drug Dosing Est GFR ( Amer) Est GFR (Non-Af Amer) BUN/Creatinine Ratio Glucose POC Glucose 86 133 H 175 H Lactate Calcium Magnesium Total Bilirubin AST ALT Alkaline Phosphatase Total Protein Albumin Globulin Albumin/Globulin Ratio Urine Color Urine Appearance Urine pH Ur Specific [place] Urine Protein Urine Glucose (UA) Urine Ketones Urine Blood Urine Nitrite Urine Bilirubin Urine Urobilinogen Ur Leukocyte Esterase Urine WBC (Auto) Urine RBC (Auto) U Hyaline Cast (Auto) U Epithel Cells (Auto) Urine Bacteria (Auto) 01/07/19 01/07/19 01/07/19 05:46 05:46 05:46 WBC 7.33 RBC 4.35 L Hgb 13.7 L Hct 40.7 L MCV 93.6 MCH 31.5 MCHC 33.7 RDW Std Deviation 50.9 H RDW Coeff of Roman 14.8 H Plt Count 224 MPV 9.3 Immature Gran % (Auto) 1.1 Neut % (Auto) 78.1 Lymph % (Auto) 13.0 [place] % (Auto) 6.0 Eos % (Auto) 1.4 Baso % (Auto) 0.4 Immature Gran # (Auto) 0.08 H Neut # (Auto) 5.73 Lymph # (Auto) 0.95 L [place] # (Auto) 0.44 Eos # (Auto) 0.10 Baso # (Auto) 0.03 PT 19.5 H INR 2.0 H Sodium 140 Potassium 4.0 Chloride 107 Carbon Dioxide 29 Anion Gap 4.0 BUN 10 Creatinine 0.87 Est Cr Clr Drug Dosing 84.1 Est GFR ( Amer) 93.2 Est GFR (Non-Af Amer) 80.4 BUN/Creatinine Ratio 12.1 Glucose 107 H POC Glucose Lactate Calcium 8.0 L Magnesium Total Bilirubin 1.2 H AST 25 ALT 31 Alkaline Phosphatase 102 Total Protein 5.6 L Albumin 2.4 L Globulin 3.2 Albumin/Globulin Ratio 0.8 L Urine Color Urine Appearance Urine pH Ur Specific [place] Urine Protein Urine Glucose (UA) Urine Ketones Urine Blood Urine Nitrite Urine Bilirubin Urine Urobilinogen Ur Leukocyte Esterase Urine WBC (Auto) Urine RBC (Auto) U Hyaline Cast (Auto) U Epithel Cells (Auto) Urine Bacteria (Auto) 01/07/19 01/07/19 07:51 11:47 WBC RBC Hgb Hct MCV MCH MCHC RDW Std Deviation RDW Coeff of Roman Plt Count MPV Immature Gran % (Auto) Neut % (Auto) Lymph % (Auto) [place] % (Auto) Eos % (Auto) Baso % (Auto) Immature Gran # (Auto) Neut # (Auto) Lymph # (Auto) [place] # (Auto) Eos # (Auto) Baso # (Auto) PT INR Sodium Potassium Chloride Carbon Dioxide Anion Gap BUN Creatinine Est Cr Clr Drug Dosing Est GFR ( Amer) Est GFR (Non-Af Amer) BUN/Creatinine Ratio Glucose POC Glucose 111 H 160 H Lactate Calcium Magnesium Total Bilirubin AST ALT Alkaline Phosphatase Total Protein Albumin Globulin Albumin/Globulin Ratio Urine Color Urine Appearance Urine pH Ur Specific [place] Urine Protein Urine Glucose (UA) Urine Ketones Urine Blood Urine Nitrite Urine Bilirubin Urine Urobilinogen Ur Leukocyte Esterase Urine WBC (Auto) Urine RBC (Auto) U Hyaline Cast (Auto) U Epithel Cells (Auto) Urine Bacteria (Auto)
--- NOTE | 2019-01-07 14:26 | Palliative Care Consultation ---
Date of Consultation January 07, 2019 Assessment & Plan (1) Palliative care encounter: This is an 83 year old male who was transfered to the [facility] from the [facility] for surgical evaluation as he presented from [facility] for fecal impaction and colonic distention that was diagnosed as an ileus, measuring > 10 cm. Additional PMH includes A-fib, CVA, COPD, DM2, PVD, dementia, CHF. Gastroenterology service did evaluate the patient yesterday and the patients abdominal x-ray has started to show marked improvement, now down to 4cm. Per GI, the recommendation was to start a clear liquid diet and stool motility medications, while avoiding opiates. Palliative Care was consulted to discuss goals of care. -I met with patient and his , Teri in room 403. -Patient was just finishing up his clear liquid diet lunch tray and per patient has been tolerating this well. We discussed his medical condition and the current signs of resolution of the underlying problem. Discussed that the plan is for possibly advancing the diet to full liquids and go from there. -When discussing overall goals with the patient and his , they confirmed him to be a DNR and stated that they have completed a POLST form which is at [facility] indicating DNR, Comfort measures only, trial abx, and no artificial hydration or nutrition. -The patient asked about palliative and hospice at [facility]. She became tearful and I expressed that it appears he IS improving and that his current condition is not anything terminal and that I do not think he is a appropriate for hospice. The patient kept saying that 'Yes, but we fix this and I still have other things wrong', which he does, CHF, COPD and dementia; however, when discussing more about his confusion, the patients thinks that he had a UTI and delirium, not necessarily dementia. -Ultimately, the patient and his have a goal of him returning to [facility] (he was only there one day, prior to going to [facility]), and re- evaluating the possibility of him returning home, which you could sense, was a goal of Teri's but an overwhelming one. -Advised that case management can discuss caregiver options, home mayelin, hospice etc once they could see how he tolerates PT. PT has been ordered. -It is reassuring to see the pt improving and we can assist with any further decision making; however, currently, does not appear to be any acute needs. Confirmed code status DNR. -PPS: 50% -We will follow peripherally. (2) Ileus: (3) Atrial fibrillation: (4) CHF (congestive heart failure): (5) COPD (chronic obstructive pulmonary disease): History of Present Illness Reason for Consultation: goals of care Requesting Physician: Dr. Gill Attending Physician: Vince Gill, DO History of Present Illness This is an 83 year old male who was transfered to the [facility] from the [facility] for surgical evaluation as he presented from [facility] for fecal impaction and colonic distention that was diagnosed as an ileus, measuring > 10 cm. Additional PMH includes A-fib, CVA, COPD, DM2, PVD, dementia, CHF. Gastroenterology service did evaluate the patient yesterday and the patients abdominal x-ray has started to show marked improvement, now down to 4cm. Per GI, the recommendation was to start a clear liquid diet and stool motility medications, while avoiding opiates. Palliative Care was consulted to discuss goals of care. Please see A/P for further details. Thank you for involving the Palliative Care service with this pleasant patient. Allergies Allergy/AdvReac Type Severity Reaction Status Date / Time aspirin Allergy Unknown HIVES, Verified 01/04/19 17:32 SOB, tongue swells, lips & hands swell Home Medications Home Medications Medication Instructions Recorded Confirmed Type acetaminophen [Tylenol Arthritis 1,300 mg PO BID 01/05/19 01/05/19 History Pain] albuterol sulfate [Ventolin HFA] 2 puff INHALATION Q6 PRN 01/05/19 01/05/19 History allopurinol 100 mg PO HS 01/05/19 01/05/19 History atorvastatin 40 mg PO PM 01/05/19 01/05/19 History clopidogrel 75 mg PO QAM 01/05/19 01/05/19 History finasteride 5 mg PO QAM 01/05/19 01/05/19 History glimepiride 1 mg PO QAM 01/05/19 01/05/19 History lisinopril 20 mg PO QAM 01/05/19 01/05/19 History metoprolol succinate 25 mg PO HS 01/05/19 01/05/19 History polyethylene glycol 3350 [Miralax] 8.5 g PO DAILY 01/05/19 01/05/19 History potassium chloride [Klor-Con 10] 10 meq PO BID 01/05/19 01/05/19 History tamsulosin 0.4 mg PO BID 01/05/19 01/05/19 History torsemide 20 mg PO QAM 01/05/19 01/05/19 History warfarin 2 mg PO HS 01/05/19 01/05/19 History Patient History Medical History Cholecystectomy planned Surgical History H/O carotid endarterectomy H/O endovascular stent graft for abdominal aortic aneurysm Family History Brother Cancer Social History Preferred Language: Khmer Communication Ability: Impaired Erp Implementation Consultant Required: No Beliefs That Will Affect Care: None Current Living Situation: Long-Term Other Information That Helps Us Care for You: No Feels Safe at Home: Yes Safety Concerns: Feels Safe At This Time Smoking Status: Former smoker Tobacco Type: cigarettes Cigarettes Per Day: 20- 30 Do You Dip or Chew Tobacco: No Smoking End Date: 2007 Second Hand Exposure: No Tobacco Cessation Education Requested by Patient: No Hx Alcohol Use: Yes Alcohol type: beer Hx Substance Use: No Review of Systems Review of Systems: Pt states that he is feeling better than yesterday Patient was just finishing up his third tray of clear liquids and has been tolerating it so far. Patient reports he continues to pass gas and has had a BM today post enema. Patient states he is hoping to leave the hospital soon. Physical Exam Constitutional: well developed and + ill appearing Eyes: PERRL, conjunctivae normal, anicteric sclerae ENMT: external ear and nose normal, oropharynx normal Neck: trachea midline, no thyromegaly Respiratory: normal respiratory effort and + cough Auscultation: + diminished lung sounds on 2LNC Cardiovascular: Rate/Rhythm: regular rate and regular rhythm Heart Sounds: normal S1 and normal S2 Extremities: normal capillary refill Gastrointestinal (Abdomen): Inspection/Auscultation: abdomen normal to inspection, + abdomen distended and normal bowel sounds Percussion/Palpation: abdomen soft Skin: no rashes, warm and dry Psychiatric: Orientation: alert and oriented x 3 Affect: + flat affect Lymphatic: no cervical or axillary lymphadenopathy Results & Data Vital Signs (Past 12 Hours) Vital Signs Temp Pulse Resp BP Pulse Ox 01/07/19 07:41 36.7 C 64 16 177/70 H 96 PG Care Time/CCT Total # of Minutes Spent Total Time Spent with Patient: Total time spent is greater than 50% in coordination of care (as documented) at patient's floor/unit and/or counseling patient: 50 Time Spent Midlevel Total time spent 50 minutes with > 50% of that time spent assessing the patient, discussing goals of care with patient and his at the bedside.
[2019-01-07] MEDS: LIDOCAINE 5% 1 PATCH TD SCH (19:33)
--- NOTE | 2019-01-07 19:39 | XRay Report ---
KUB CLINICAL HISTORY: Ileus, Bowel distension COMPARISON STUDY: KUB January 07, 2019 at 9:46 AM. FINDINGS: Endovascular bifurcated aortoiliac graft is noted. Bowel distention has improved since exam of January 07, 2019 at 9:46 AM. Residual cholecystectomy clips. A trace left pleural effusion is suspect ed. There are mild bibasilar opacities. Several left renal calculi are again noted. IMPRESSION: 1. Interval improvement in bowel distention. No evidence for a bowel obstruction. 2. Left-sided nephrolithiasis. Electronically signed by: Cristian Swift M.D. 01/07/2019 7:37 PM
[2019-01-07] MEDS: METOPROLOL SUCC 25MG EXT REL TAB PO SCH (19:42)
[2019-01-07] MEDS: ATORVASTATIN 40 MG TAB PO SCH (19:43)
[2019-01-07] MEDS: WARFARIN SOD 2 MG TAB PO SCH (19:43)
[2019-01-08] MEDS: ACETAMINOPHEN 325 MG TAB PO PRN ×4 (04:20→23:38)
[2019-01-08 06:17] LABS: INR 2.9 (0.9-1.1); Prothrombin Time 27.2 Seconds (9.0-12.0)
[2019-01-08 06:19] LABS: BUN Creatinine Ratio 12.2 (10-20); Calcium 8.3 mg/dl (8.5-10.1); Est GFR (African American) 101.3; Est GFR (Non-African American) 87.4; Magnesium 1.8 mg/dl (1.8-2.4); Potassium 3.6 mmol/L (3.5-5.1)
[2019-01-08] MEDS ORDERED: MAGNESIUM SULFATE / D5W 1 GM/100 ML BAG IV ONE (06:52)
[2019-01-08] MEDS ORDERED: POTASSIUM CHLORIDE 20 MEQ/15 ML UDC PO STA (06:52)
[2019-01-08] MEDS: TORSEMIDE 10 MG TAB PO SCH (08:24)
[2019-01-08] MEDS: POLYETHYLENE (MIRALAX) 17 GM PACK PO SCH (08:24)
[2019-01-08] MEDS: TAMSULOSIN HCL 0.4 MG CAP PO SCH ×2 (08:24→20:55)
[2019-01-08] MEDS: FINASTERIDE 5 MG TAB PO SCH (08:25)
[2019-01-08] MEDS: CLOPIDOGREL BISULFATE 75 MG TAB PO SCH (08:25)
[2019-01-08] MEDS: LISINOPRIL 20 MG TAB PO SCH (08:25)
[2019-01-08] MEDS: INSULIN ASPART 100 UNITS/ML 3 ML PEN SC SCH ×4 (08:40→20:56)
--- NOTE | 2019-01-08 09:07 | Family Medicine Progress Note ---
Date of Service January 08, 2019 Assessment & Plan (1) Ileus: Mr. Ortega is an 83 yo M PMH CVA, AAA, aneurysm s/p stent placement (on plavix), afib (on coumadin), T2DM, BPH, CHF, admitted for fecal impaction and colonic distension 2/2 opiate use after mechanical fall. Ileus 2/2 Opiate use, resolved -GI on board, appreciate recs. Advanced diet to full liquids on 01/09 -Miralax 34 daily. Has had copious stool. -XR stable, will monitor daily per GI -Cont to avoid opiates for pain, see plan for L3 fracture below Fractured L3 -Avoid opiates due to ileus and constipation -Tylenol and lidoderm patch to area -Will add voltaren gel while patch off -Expect pain/discomfort up to 3-4 weeks. -Recommend outpatient assessment of bone density (dexa, vit D) considering fracture after mechanical fall -If acute pain still present at 6 weeks post-fall, consider referral for assessment for kyphoplasty -Also consider calcitonin nasal spray depending on bone density, pain level after 6-8 weeks Goals of care discussion -On admission, patient expressed wish for assisted suicide, expressing he could not longer tolerate his clinical status -Patient and adamant that he is not clinically depressed. Consider outpatient eval -Palliative care consulted, appreciated. No life limiting illness at this point. Case management to discuss home health services. Confirmed DNR/I Code status -Patient admits he would like to regain some of his functional status. Discussion was had that this meant he would need to participate in PT/OT while in hospital and while at [facility] CHF, unknown type -No recent echo on file -IVF DCd on 01/07/19 with PO intake -Continue home lisinopril and torsemide -Clinically euvolemic. No s/s of exacerbation. Atrial Fibrillation -Continue warfarin -Daily INR -Metoprolol succinate 25 mg qhs COPD -Stable, on 2L -PRN duonebs for wheezing/SOB -Patient has home oxygen but per does not use it at all. Education prov ided. T2DM -ISS, no basal -Cont oral meds from home on DC -Monitor BPH -Will DC milan catheter 01/08/19. C/W Finesteride and tamsulosin. PVD -Resumed plavix and coumadin F/E/N: Full liquids, converting to heart healthy/carb consistent tonight as tolerated DVT PPx: Coumadin Dispo: Med Surg CODE: DNR/DNI (2) Arthritis: (3) Atrial fibrillation: (4) Dementia: (5) Chronic constipation: (6) CHF (congestive heart failure): (7) H/O: CVA (cerebrovascular accident): (8) Iliac aneurysm: (9) COPD (chronic obstructive pulmonary disease): (10) Hypertension: (11) BPH (benign prostatic hyperplasia): Supervising Physician Co-Signing Physician Notes I personally examined the patient and verified all lopez points of history and exam, discussed case, and agree with decision making with Dr Flores. resting comfortably no new complaints tolerating diet vitals noted nad breathing unlabored no accessory muscles, no pallor or icterus ileus/narcotics induced - improving, advance diet, continue bowel regimen back pain - was the cause for needing pain control to begin with - seems tolerable with current regimen, agree w addition of voltaren gel DVT proph - anticoagulation dispo - hopefully snf w rehab emphasis 1-2 days Subjective Aakash is feeling a little better today in terms of his bloating. Had another large BM overnight. His back discomfort remains at a 7/10. Pt did not want to participate in PT yesterday. Discussed that his goal is to obtain some functional status that he had previously, and therefore this requires participation. Patient amenable. Review of Systems Review of Systems: All systems reviewed & are unremarkable except as noted in HPI & below Constitutional: + body aches and + malaise Respiratory: + dyspnea Cardiovascular: no chest pain and no radiating jaw, neck or arm pain Gastrointestinal: + bloating; no early satiety, no nausea and no vomiting Musculoskeletal: + back pain and + joint pain Physical Exam Constitutional: WD/WN, vitals as above + obese, + physical limitations, + frail appearing, cooperative and comfortable Eyes: PERRL, conjunctivae normal, anicteric sclerae ENMT: external ear and nose normal, oropharynx normal Neck: normal visual inspection Respiratory: normal respiratory effort, lungs clear to auscultation Cardiovascular: RRR, no murmur, no edema Gastrointestinal (Abdomen): normal bowel sounds, soft, nontender, no hepatosplenomegaly Inspection/Auscultation: + abdomen distended Percussion/Palpation: abdomen nontender, no guarding and abdomen not rigid Skin: no rashes, warm and dry Neurologic: PERRL, EOMI, accommodation nl, no face palsy, no dysarthria Psychiatric: A+Ox3, euthymic affect Results & Data Vital Signs (Past 12 Hours) Vital Signs Temp Pulse Resp BP Pulse Ox 01/08/19 06:58 36.4 C L 75 18 152/65 H 97 01/07/19 23:19 36.8 C 82 20 125/68 94 Laboratory Results 01/08/19 01/08/19 01/08/19 Range/Units 07:28 05:09 05:09 PT 27.2 H (9.0-12.0) Seconds INR 2.9 H (0.9-1.1) Sodium 142 (136-145) mmol/L Potassium 3.6 (3.5-5.1) mmol/L Chloride 108 H (98-107) mmol/L Carbon Dioxide 29 (21-32) mmol/L Anion Gap 5.0 (3-11) BUN 9 (7-18) mg/dl Creatinine 0.71 (0.6-1.4) mg/dl Est Cr Clr Drug Dosing 103.0 ml/min Est GFR ( Amer) 101.3 Est GFR (Non-Af Amer) 87.4 BUN/Creatinine Ratio 12.2 (10-20) Glucose 110 H (70-99) mg/dl POC Glucose 105 H (70-99) Calcium 8.3 L (8.5-10.1) mg/dl Magnesium 1.8 (1.8-2.4) mg/dl 01/07/19 01/07/19 01/07/19 Range/Units 20:14 16:29 11:47 PT (9.0-12.0) Seconds INR (0.9-1.1) Sodium (136-145) mmol/L Potassium (3.5-5.1) mmol/L Chloride (98-107) mmol/L Carbon Dioxide (21-32) mmol/L Anion Gap (3-11) BUN (7-18) mg/dl Creatinine (0.6-1.4) mg/dl Est Cr Clr Drug Dosing ml/min Est GFR ( Amer) Est GFR (Non-Af Amer) BUN/Creatinine Ratio (10-20) Glucose (70-99) mg/dl POC Glucose 176 H 91 160 H (70-99) Calcium (8.5-10.1) mg/dl Magnesium (1.8-2.4) mg/dl Medications Administered Current Inpatient Medications Acetaminophen (Tylenol) 650 mg PO Q4H PRN PRN Reason: pain/fever Stop: 02/03/19 17:49 Last Admin: 01/08/19 04:20 Dose: 650 mg Documented by: Atorvastatin Calcium (Lipitor) 40 mg PO QPM DYLON Stop: 02/03/19 20:59 Last Admin: 01/07/19 19:43 Dose: 40 mg Documented by: Clopidogrel Bisulfate (Plavix) 75 mg PO DAILY DYLON Stop: 02/04/19 08:59 Last Admin: 01/08/19 08:25 Dose: 75 mg Documented by: Dextrose (Dextrose 50%) 25 - 50 ml IV UD PRN; Protocol PRN Reason: Hypoglycemia Protocol Stop: 02/04/19 04:15 Diclofenac Sodium (Voltaren 1% Top) 1 appln EXT Q4 DYLON Stop: 02/07/19 11:59 Finasteride (Proscar) 5 mg PO DAILY DYLON Stop: 02/04/19 08:59 Last Admin: 01/08/19 08:25 Dose: 5 mg Documented by: Glucagon (Glucagen) 1 mg SQ UD PRN; Protocol PRN Reason: Hypoglycemia Protocol Stop: 02/04/19 04:15 Glucose (Glucose 40%) 15 - 30 gm PO UD PRN; Protocol PRN Reason: Hypoglycemia Protocol Stop: 02/04/19 04:15 Glucose (Dex4 Glucose) 4 - 8 tabs PO UD PRN; Protocol PRN Reason: Hypoglycemia Protocol Stop: 02/04/19 04:15 Potassium Chloride/Sodium Chloride (Normal Saline W/20 Meq Kcl) 20 meq in 1,000 mls @ 80 mls/hr IV .[id number] DYLON Stop: 02/03/19 18:14 Last Infusion: 01/07/19 09:25 Dose: Infused Documented by: Insulin Aspart (Novolog Flexpen) 0 units SC ACHS DYLON Stop: 02/05/19 16:29 Last Admin: 01/08/19 08:40 Dose: 4 units Documented by: Lidocaine (Lidoderm 5%) 1 patch TD DAILY@1999 [facility] Stop: 02/04/19 19:59 Last Admin: 01/07/19 19:33 Dose: 1 patch Documented by: Lisinopril (Zestril) 20 mg PO DAILY [facility] Stop: 02/04/19 08:59 Last Admin: 01/08/19 08:25 Dose: 20 mg Documented by: Methylnaltrexone [place] (Relistor) 12 mg SQ Q2D@1130 [facility] Stop: 02/04/19 11:29 Last Admin: 01/07/19 11:27 Dose: 12 mg Documented by: Metoprolol Succinate (Toprol Xl) 25 mg PO QPM DYLON Stop: 02/03/19 20:59 Last Admin: 01/07/19 19:42 Dose: 25 mg Documented by: Miscellaneous (Carbohydrates For Hypoglycemia) 15 - 30 gm PO UD PRN PRN Reason: Hypoglycemia Treatment Stop: 02/04/19 04:15 Miscellaneous (Remove Lidoderm Patch) 1 ea N/A DAILY@0800 [facility] Stop: 02/05/19 07:59 Last Admin: 01/08/19 08:43 Dose: 1 ea Documented by: Ondansetron HCl (Zofran) 4 mg IV Q6H PRN PRN Reason: Nausea Stop: 02/03/19 17:49 Polyethylene Glycol (Miralax Powder Packet) 34 gm PO DAILY [facility] Stop: 02/06/19 11:29 Last Admin: 01/08/19 08:24 Dose: 34 gm Documented by: Tamsulosin HCl (Flomax) 0.4 mg PO BID [facility] Stop: 02/03/19 20:59 Last Admin: 01/08/19 08:24 Dose: 0.4 mg Documented by: Torsemide (Demadex) 20 mg PO DAILY [facility] Stop: 02/04/19 08:59 Last Admin: 01/08/19 08:24 Dose: 20 mg Documented by: Warfarin Sodium (Coumadin) 2 mg PO HS [facility] Stop: 02/06/19 20:59 Last Admin: 01/07/19 19:43 Dose: 2 mg Documented by: PG Care Time/CCT Total # of Minutes Spent Total Time Spent with Patient: Total time spent is greater than 50% in learning coordinator rdination of care (as documented) at patient's floor/unit and/or counseling patient: Resident Activity Tracking Resident Involvement: Resident Care Provided Care Provided: Adult Hospital Medicine
[2019-01-08] MEDS: DICLOFENAC SOD 1% GEL 100 GM TUBE EXT SCH ×2 (13:21→15:54)
[2019-01-08] MEDS: LIDOCAINE 5% 1 PATCH TD SCH (20:54)
[2019-01-08] MEDS: ATORVASTATIN 40 MG TAB PO SCH (20:55)
[2019-01-08] MEDS: METOPROLOL SUCC 25MG EXT REL TAB PO SCH (20:56)
[2019-01-08] MEDS: WARFARIN SOD 2 MG TAB PO SCH (20:56)
[2019-01-09] MEDS: ACETAMINOPHEN 325 MG TAB PO PRN ×3 (03:13→14:04)
[2019-01-09 06:10] LABS: INR 2.4 (0.9-1.1); Prothrombin Time 23.5 Seconds (9.0-12.0)
[2019-01-09 06:22] LABS: BUN Creatinine Ratio 9.6 (10-20); Calcium 8.2 mg/dl (8.5-10.1); Creatinine Clr Calc Pharmacy 60.6 ml/min; Est GFR (African American) 64.9
[2019-01-09] MEDS: POLYETHYLENE (MIRALAX) 17 GM PACK PO SCH (07:30)
[2019-01-09] MEDS: TORSEMIDE 10 MG TAB PO SCH (07:30)
[2019-01-09] MEDS: DICLOFENAC SOD 1% GEL 100 GM TUBE EXT SCH ×2 (07:30→12:56)
[2019-01-09] MEDS: TAMSULOSIN HCL 0.4 MG CAP PO SCH (07:30)
[2019-01-09] MEDS: FINASTERIDE 5 MG TAB PO SCH (07:31)
[2019-01-09] MEDS: LISINOPRIL 20 MG TAB PO SCH (07:31)
[2019-01-09] MEDS: CLOPIDOGREL BISULFATE 75 MG TAB PO SCH (07:31)
[2019-01-09] MEDS: INSULIN ASPART 100 UNITS/ML 3 ML PEN SC SCH ×2 (08:46→12:55)
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
== END 2019-01-09 15:06 | DRG 389 ==
LOC: SUATTDRO 16:11 → 4E 16:11